=== PATIENT | female | born 1985 | race African-American/Black ===

== ENCOUNTER 2017-06-02 09:38 | Emergency (ER) | payer SELFPAY ==
[~2017-06-02] VITALS: Ht 162.6 cm; Wt 88.0 kg
[~2017-06-02 09:38] MED LIST: IBUP600 PO; OXYC1SOL5 PO
[2017-06-02 09:40] VITALS: BP 143/68; PULSE 90; RESP 14; TEMP 98.6; O2SAT 99
[2017-06-02] MEDS ORDERED: PENICILLIN V POTASSIUM 500 MG TAB PO ONE (10:00)
[2017-06-02] MEDS ORDERED: ACETAMINOPHEN/CODEINE 300 MG/30 MG TAB PO ONE (10:00)
[2017-06-02] MEDS ORDERED: TYLETAB34 PO (10:00)
[2017-06-02] MEDS ORDERED: IBUP-232 PO (10:00)
[2017-06-02] MEDS ORDERED: PENI500T PO (10:00)
--- NOTE | 2017-06-02 10:00 | PD ---
HPI Chief Complaint: Oral / Dental Pain or Problem Time Seen by Provider: 09:47 Travel History International Travel<30 days: No Contact w/Intl Traveler<30days: No Traveled to known affect area: No History of Present Illness HPI Patient is a 31 -year-old female who presents to emergency room complaints of dental pain. Patient reports that since yesterday, she has had pain to her left upper molar. Patient reports that she woke up today and noticed swelling to the left side her face. Patient denies any trismus, denies any problems eating or drinking. Patient reports that she knows that she needs to see a dentist, she will make an appointment first thing Sunday morning. Patient with no fever or chills, no other complaints at this time. PFSH Past Medical History Cancer: No Cardiovascular Problems: No Diminished Hearing: No Endocrine: No Genitourinary: No Immune Disorder: No Musculoskeletal: No Psychiatric: No Reproductive: No Respiratory: No Immunizations Current: Yes ?: Not LMP: 05/24/17 : 0 Social History Alcohol Use: No Tobacco Use: Yes Substance Use: No Allergies-Medications (Allergen,Severity, Reaction): Coded Allergies: No Known Allergies (Verified , 10/29/14) Reported Meds & Prescriptions Reported Meds & Active Scripts Active Oxycodone/Acetaminophen 5 mg/325 mg 5 mg/325 mg Tab 1 Tab PO Q4H Motrin 600 Mg Tab (Ibuprofen) 600 Mg Tab 600 Mg PO Q6H Review of Systems General / Constitutional: No: Fever Eyes: No: Visual changes HENT: Positive: Dental Difficulties, No: Headaches Cardiovascular: No: Chest Pain or Discomfort Respiratory: No: Shortness of Breath Gastrointestinal: No: Abdominal Pain Genitourinary: No: Dysuria Musculoskeletal: No: Pain Skin: No Rash Neurologic: No: Weakness Psychiatric: No: Depression Endocrine: No: Polydipsia Hematologic/Lymphatic: No: Easy Bruising Physical Exam Narrative GENERAL: Well-nourished, well-developed patient. SKIN: Focused skin assessment warm/dry. HEAD: Normocephalic. EYES: No scleral icterus. No injection or drainage. MOUTH: Patient with overall poor dentition, patient with pain to the left upper posterior molar, patient with left-sided cervical adenopathy, no trismus, patient with no airway compromise, uvula midline and pain with no swelling, posterior pharynx with no swelling NECK: Supple, trachea midline. No JVD or lymphadenopathy. CARDIOVASCULAR: Regular rate and rhythm without murmurs, gallops, or rubs. RESPIRATORY: Breath sounds equal bilaterally. No accessory muscle use. GASTROINTESTINAL: Abdomen soft, non-tender, nondistended. MUSCULOSKELETAL: No cyanosis, or edema. BACK: Nontender without obvious deformity. No CVA tenderness. Data Data Last Documented VS Vital Signs Date Time Temp Pulse Resp B/P (MAP) Pulse Ox O2 Delivery O2 Flow Rate FiO2 06/02/17 09:40 98.6 90 14 143/68 (93) 99 Orders Orders Penicillin V Potassium (Veetids) (06/02/17 10:00) Acetamin-Codeine 300-30 Mg (Tylenol-Code (06/02/17 10:00) MDM Medical Decision Making Medical Screen Exam Complete: Yes Emergency Medical Condition: Yes Medical Record Reviewed: Yes Interpretation(s) Vital Signs Date Time Temp Pulse Resp B/P (MAP) Pulse Ox O2 Delivery O2 Flow Rate FiO2 06/02/17 09:40 98.6 90 14 143/68 (93) 99 Differential Diagnosis dental caries/abscess Narrative Course 31-year-old female who presents to emergency room with complaints of left-sided upper dental pain since yesterday, woke up with swelling to the left side her face this morning. Patient with no airway difficulties, no trismus on exam, patient with most likely dental infection. Patient reports that she will call dentist for follow-up on Sunday. Patient was given copies for dental referrals for emergent dental visits. Plan to start patient on antibiotics. Signs and symptoms of when to return to the emergency room was reviewed with patient in detail. Diagnosis Primary Impression: Pain due to dental caries Patient Instructions: General Instructions, Narcotic given in the ED Additional Instructions: Please follow-up with a dentist as soon as possible Please take all antibiotics as prescribed Return to emergency room if symptoms worsen or progress Return to the emergency room as needed Med/Other Pt SpecificInfo: Prescription(s) given Scripts Ibuprofen (Ibuprofen) 600 Mg Tab 600 MG PO Q6H Y for Pain/Inflammation, #40 TAB 0 Refills Prov: Alondra Umana DO 06/02/17 Penicillin V Potassium (Penicillin V Potassium) 500 Mg Tab 500 MG PO Q6H for Infection for 10 Days, #40 TAB 0 Refills Prov: Alondra Umana DO 06/02/17 Acetaminophen-Codeine (Tylenol-Codeine #3) 300-30 mg Tab 1 TAB PO Q4H Y for PAIN, #10 TAB 0 Refills Prov: Alondra Umana DO 06/02/17 Disposition: 01 DISCHARGE HOME Condition: Stable Alondra Umana DO Jun 02, 2017 10:00
== END 2017-06-02 10:14 | disposition home or self-care (01) ==
LOC: NEPD 09:38
DX: K02.9 Dental caries, unspecified (principal); Z72.0 Tobacco use
CPT/HCPCS: 99284